=== PATIENT | female | born 1990 | race Caucasian/White ===

== ENCOUNTER 2023-07-20 02:26 | Inpatient (IN) | payer OTHER, SELFPAY ==
[2023-07-20 02:51] LABS: Hematocrit 32.2 % (37.0-47.0); Hemoglobin 11.2 g/dL (12.0-16.0); Mean Corp Hgb Conc. 34.8 g/dL (33.0-37.0); Mean Corpuscular Hgb 29.1 pg (27.0-31.0); Mean Corpuscular Volume 83.6 fL (81.0-99.0); Mean Platelet Volume 11.1 fL (7.4-10.4); Platelet Count 330 10^3/uL (130-400); Red Blood Cell Count 3.85 10^6/uL (4.20-5.40); Red Cell Dist. Width 13.5 % (11.5-14.5); White Blood Cell Count 14.1 10^3/uL (4.8-10.8)
[2023-07-20 03:05] VITALS: BMI 32.8
[2023-07-20 03:21] LABS: INR 1.01; PT 13.5 Sec (11.4-14.6)
[2023-07-20 03:24] LABS: Blood Urea Nitrogen 4 mg/dl (7-17); Calcium 8.2 mg/dl (8.4-10.2); Carbon Dioxide 13 mmol/L (22-30); Chloride 111 mmol/L (98-107); Estimated Creatinine Clearance > 125 ml/min; Glucose 94 mg/dl (70-99); Sodium 133 mmol/L (135-145); eGFR > 60.00
[2023-07-20 03:48] VITALS: BP 124/76
[2023-07-20 03:54] LABS: Fibrinogen 634 MG/DL (199-459)
[2023-07-20 04:00] VITALS: BP 108/74
[2023-07-20] MEDS: COMPAZINE 5 MG IV (04:05)
[2023-07-20 04:15] VITALS: BP 115/77
[2023-07-20] MEDS: TORADOL 15 MG IV ×3 (05:17→16:31)
[2023-07-20 05:59] VITALS: BP 108/64; BMI 31.9
[2023-07-20 13:21] LABS: Hematocrit 28.6 % (37.0-47.0); Hemoglobin 10.1 g/dL (12.0-16.0); Mean Corp Hgb Conc. 35.3 g/dL (33.0-37.0); Mean Corpuscular Hgb 29.4 pg (27.0-31.0); Mean Corpuscular Volume 83.4 fL (81.0-99.0); Mean Platelet Volume 10.7 fL (7.4-10.4); Platelet Count 321 10^3/uL (130-400); Red Blood Cell Count 3.43 10^6/uL (4.20-5.40); Red Cell Dist. Width 13.4 % (11.5-14.5); White Blood Cell Count 16.8 10^3/uL (4.8-10.8)
--- NOTE | 2023-07-20 13:21 | CM ---
CM recieved call from supervisor diagnostic regarding plan to transfer patient to be with babies at [facility]. Per nursing accepting physician is Dr. Rusty Sullivan. nursing is sending fax and CM will be attempting to clarify if patient needs
auth. for transfer.
--- NOTE | 2023-07-20 14:39 | CM ---
Received return call from Chely Javier from [facility], confirming no authorization is required for this transfer, they are just waiting for a bed and will contact [facility] once bed is available.
[2023-07-20] MEDS: TYLENOL 650 MG PO (15:09)
[2023-07-20] MEDS: MYLICON 80 MG PO (15:20)
[2023-07-20] MEDS: PERCOCET 5/325 1 TABLET PO (15:53)
--- NOTE | 2023-07-20 18:22 | W.DS.TRANS ---
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
-
Discharge Instructions:
Instructions:
Stand-Alone Forms:
Changes to Home Medications: No
Discharge Medications:
DC Medications w/original date entered in [employer]
vit no.95-ferrous fumarate 28 mg-folic acid 800 mcg tablet () 1 tab PO DAILY Supplement 12/07/20
aspirin 81 mg tablet 81 mg PO DAILY 07/04/23
psyllium husk 3.4 gram/5.4 gram oral powder (Metamucil) 1 tsp PO DAILY 07/04/23
Colace 1 tab PO BID 07/19/23
Home Medication Changes
Pending Results: Yes
Additional Pending Results:
placenta path
Total time spent discharging patient (in min): 20
== END 2023-07-20 18:00 | disposition short-term general hospital (02) | DRG 787 ==
LOC: LDRP 02:26
PROVIDERS: Obstetrics & Gynecology; ADMITTING PHYSICIAN Obstetrics & Gynecology
PROC: 0UQ90ZZ Repair Uterus, Open Approach (ICD-10-PCS; 2023-07-20)
PROC: 10D00Z1 Extraction of Products of Conception, Low, Open Approach (ICD-10-PCS; 2023-07-20)
DX: O00-O9A Pregnancy, childbirth and the puerperium (principal); D62 Acute posthemorrhagic anemia; O76 Abnormality in fetal heart rate and rhythm complicating labor and delivery; Z3A.25 25 weeks gestation of pregnancy; Z37.2 Twins, both liveborn; O30.042 Twin pregnancy, dichorionic/diamniotic, second trimester; O34.211 Maternal care for low transverse scar from previous cesarean delivery; O99.344 Other mental disorders complicating childbirth; F41.9 Anxiety disorder, unspecified; O36.8121 Decreased fetal movements, second trimester, fetus 1; O36.8122 Decreased fetal movements, second trimester, fetus 2; Z88.5 Allergy status to narcotic agent; Z88.6 Allergy status to analgesic agent; O99.02 Anemia complicating childbirth; O69.81X2 Labor and delivery complicated by cord around neck, without compression, fetus 2
CPT/HCPCS: 88305; 88307; 80048; 85027; 85384; 85460; 85610; 86850; 86900; 86901; 86920; 86922; C1765